=== PATIENT | female | born 1985 | race Caucasian/White ===

== ENCOUNTER 2024-02-22 21:30 | Emergency (ER) | payer OTHER ==
[~2024-02-22] VITALS: Ht 157.5 cm; Wt 64.0 kg
[2024-02-22 22:36] VITALS: TEMP 97.8; O2SAT 100
[2024-02-23 00:50] VITALS: BP 100/52; PULSE 73; RESP 18
[2024-02-23] MEDS: ACETAMINOPHEN WITH CODEINE 300/30MG TABLET PO ONE (00:50)
[2024-02-23] MEDS ORDERED: CYCL10TA21 MT (00:55)
[2024-02-23] MEDS ORDERED: NAPR-1176 MT (00:55)
== END 2024-02-23 00:59 | disposition home or self-care (01) ==
LOC: ER 21:30
DX: S39.012A Strain of muscle, fascia and tendon of lower back, initial encounter (principal); S20.219A Contusion of unspecified front wall of thorax, initial encounter; V49.9XXA Car occupant (driver) (passenger) injured in unspecified traffic accident, initial encounter; W22.11XA Striking against or struck by driver side automobile airbag, initial encounter; Y93.89 Activity, other specified; Y92.89 Other specified places as the place of occurrence of the external cause; Y99.8 Other external cause status
CPT/HCPCS: 81025; 71045; 99283; Z7610